=== PATIENT | male | born 1980 | race Caucasian/White ===

== ENCOUNTER 2019-04-12 12:47 | Emergency (ER) | payer SELFPAY ==
[~2019-04-12] VITALS: Ht 162.6 cm; Wt 77.1 kg
[2019-04-12 12:51] VITALS: Ht 162.6 cm; Wt 77.1 kg
[2019-04-12 14:52] VITALS: BP 118/71
== END 2019-04-12 14:52 | disposition home or self-care (01) ==
LOC: ED 12:47
DX: R07.89 Other chest pain (principal); R20.2 Paresthesia of skin; R68.2 Dry mouth, unspecified
CPT/HCPCS: Q0092